=== PATIENT | male | born 1990 | race Caucasian/White ===

== ENCOUNTER 2016-06-02 13:18 | Emergency (ER) | payer SELFPAY ==
--- NOTE | 2016-06-02 13:34 | Emergency Department Record ---
History of Present Illness - General Chief complaint: Pain Stated complaint: L THUMB INJURY Time Seen by Provider: 06/02/16 13:34 Source: Patient Mode of Arrival: Ambulatory Limitations: No limitations - History of Present Illness Initial comments: The patient is here due to L thumb pain. He developed a blister on his L thumb pad a weak ago and then tried to pop it with a needle. Since it has become more painful and swollen. He denies any direct trauma or injury. MD Complaint: Extremity pain Onset/Timin -: Week(s) Location: Left, Hand History of Same: No Radiation: None Severity scale (1-10): 5 Quality: Aching Consistency: Constant Improves with: Nothing Worsens with: Exertion Associated Symptoms: Denies other symptoms - Related Data Previous Rx's Medication Instructions Recorded Clindamycin HCl [Cleocin HCl] 300 mg PO QID #28 capsule 06/02/16 Allergies Allergy/AdvReac Type Severity Reaction Status Date / Time No Known Drug Allergies Allergy Verified 06/02/16 13:26 Travel Screening - Travel/Exposure Within Last 30 Days Have you traveled within the last 30 days?: No - Travel/Exposure Within Last Year Have you traveled outside the [place] in the last year?: No - Additonal Travel Details Have you been exposed to anyone with a communicable illness?: No - Travel Symptoms Symptom Screening: None Review of Systems Constitutional: Denies: Chills, Fever Eyes: Denies: Eye discharge ENT: Denies: Congestion Respiratory: Denies: Cough, Dyspnea Past Medical History - SOCIAL HISTORY Smoking Status: Current every day smoker Alcohol Use: None Drug Use: Occassional Drug Use Detail:: Marijuana - RESPIRATORY Hx Respiratory Disorders: No - CARDIOVASCULAR Hx Cardio Disorders: No - NEURO Hx Neuro Disorders: No - GI Hx GI Disorders: No - Hx Genitourinary Disorders: No - ENDOCRINE Hx Endocrine Disorders: No - MUSCULOSKELETAL Hx Musculoskeletal Disorders: No - PSYCH Hx Psych Problems: No - HEMATOLOGY/ONCOLOGY Hx Hematology/Oncology Disorders: No Family Medical History Any Significant Family History?: No Family Hx Comment (NOT TO BE USED IN PLACE OF ITEMS BELOW): patient is adopted, family history is unknown Physical Exam - General General Appearance: Alert, Oriented x3, Cooperative, No acute distress - Head Head exam: Atraumatic, Normocephalic, Normal inspection - Eye Eye exam: Normal appearance, PERRL - Respiratory Respiratory exam: Normal lung sounds bilaterally. negative: Respiratory distress - Cardiovascular Cardiovascular Exam: Regular rate, Normal rhythm, Normal heart sounds - Extremities Extremities exam: Full ROM (There is no pain with ROM of the MCP joint and no signs of flexor tenosynovitis.), Tenderness (There is slight swelling, tenderness and erythema to the L thumb pad. There is no tenderness proximal to the DIP joint on the volar surface. There also is no tenderness with palpation of the L thumb flexor tendon proximal to the DIP joint.), Other (There is nothing to I and D at this time.). negative: Normal inspection, Joint swelling Image of Hand: 1 - Area of infection. No abscess present. Course Vital Signs 06/02/16 13:26 Temperature 97.8 F Pulse Rate 138 H Respiratory 16 Rate Blood Pressure 132/79 Pulse Ox 98 - Reevaluation(s) Reevaluation #1: The patient is resting comfortably. He denies any new issues or problems. 06/02/16 14:52 Disposition Disposition: Discharge Clinical Impression: Infection of thumb Disposition: Home, Self-Care Condition: (1) Good Instructions: Cellulitis (ED) Additional Instructions: Please take the Clindamycin as directed and please use warm compresses on the L thumb every 2-3 hours while awake. Please see Dr. Barnhart for recheck later this week. Please return to the ER for any increased pain, swelling, redness or fever. Prescriptions: Clindamycin HCl [Cleocin HCl] 300 mg PO QID #28 capsule Forms: Patient Portal Access Time of Disposition: 14:54
[2016-06-02] MEDS ORDERED: CLINDAMYCIN 600MG/50ML PREMIX 600 MG in DEXTROSE 1 BAG IV ONE (13:39)
[2016-06-02] MEDS ORDERED: Diph,Pert(Acell),Tet Vac 0.5 ML SYR IM ONE (14:02)
== END 2016-06-02 15:17 | disposition home or self-care (01) ==
LOC: ER 13:18
DX: L08.9 Local infection of the skin and subcutaneous tissue, unspecified (principal); M79.645 Pain in left finger(s)
CPT/HCPCS: 90715; 96365; 96372; 99284

== ENCOUNTER 2016-09-27 20:30 | Emergency (ER) | payer SELFPAY ==
[2016-09-27] MEDS ORDERED: HYDROMORPHONE HCL 1 MG/ML CPJ IVP ONE ×2 (20:46→21:33)
[2016-09-27] MEDS ORDERED: LORAZEPAM 2 MG/ML VIAL IV ONE (20:46)
[2016-09-27] MEDS ORDERED: 0.9 % SODIUM CHLORIDE 1,000 ML BAG IV ONE (20:46)
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
[2016-09-27] MEDS ORDERED: 0.9 % SODIUM CHLORIDE 1000ML 1,000 ML IV ONE (21:20)
== END 2016-09-27 21:45 | disposition short-term general hospital (02) ==
LOC: ER 20:30
DX: T20.27XA Burn of second degree of neck, initial encounter (principal); T23.292A Burn of second degree of multiple sites of left wrist and hand, initial encounter; T22.292A Burn of second degree of multiple sites of left shoulder and upper limb, except wrist and hand, initial encounter; T21.21XA Burn of second degree of chest wall, initial encounter; T31.20 Burns involving 20-29% of body surface with 0% to 9% third degree burns; X01.8XXA Other exposure to uncontrolled fire, not in building or structure, initial encounter; W40.1XXA Explosion of explosive gases, initial encounter
CPT/HCPCS: 99284 ×2; 96374; 96375; 96361; J2060; J1170; J7030